=== PATIENT | female | born 1975 | race Caucasian/White ===

== ENCOUNTER 2024-06-04 09:33 | Outpatient (CLI) | payer BC, SELFPAY ==
--- OUTSIDE RECORDS SUMMARY | 2024-06-04 09:36 | XMS_ITS | Patient Health Record ---
Author Organization [facility] Address [address] [place] [address] Support Name Relationship Address Phone Francoise Vilma Guarantor Unknown [phone] Allergies Allergen (clinical drug ingredient) Drug/Non Drug Allergy documented on EMR Reaction Allergy Type Onset Date Status Sulfacet-R rash Drug Allergy Active Reason For Referral No Information Medications Medication SIG (Take, Route, Frequency, Duration) Notes Start Date End Date Status Pyridium 100 MG 2 tablets after meals Orally Three times a day for 5 days 07/30/2019 Active Womens Multivitamin - as directed Orally 1 tablet daily Active MAGNESIUM GLYCINATE 100mg 2 tabl ets in the evening Active Sertraline HCl 50 MG 1 tablet Orally Once a day for 30 day(s) Active oxyBUTYnin Chloride ER 5 MG 1 tablet Orally Once a day for 30 day(s) 07/30/2019 Active THYROID SUPPLEMENT 900 mg daily Active Myrbetriq 25 MG 1 tablet Orally Once a day for 30 day(s) 07/09/2019 Active Potassium Gluconate 595 (99 K) MG as directed Orally 2 tablets daily Activ e HERBAL SUPPLEMENT Keratin 2 capsules daily Active Social History Tobacco Use: Social History Observation Description Date Details (start date - stop date) Never Smoker NA - NA Tobacco Use/Smoking Question Answer Notes Are you a nonsmoker Problems Problem Type SNOMED Code ICD Code Onset Dates Problem Status W/U Status Risk Notes Problem 147360835 Cystocele, midline (N81.11) Active confirmed Problem SI - Stress incontinence (98355509) Stress incontinence (N39.3) Active confirmed Problem 102115590 Urinary incontinence, unspecified type (R32) Active confirmed Problem 683448106 Uterovaginal prolapse, incomplete (N81.2) Active confirmed Problem 234360872 Urinary incontinence without sensory awareness (N39.42) Active confirmed Plan Of Treatment No Information Insurance Providers Payer Name Payer Address Payer Phone Subscriber Number Group Number Insured Name Patient Relationship to Insured Coverage Start Date Coverage End Date Medi Share (INS BILL) [address] [place] [id number] [phone] [id number] Vilma Owusu Self - patient is the insured Medical (General) History Medical History History ICD Code Migraines Anxiety/depression Urinary Incontinence Surgical History Surgery Date(Month/Year) Vaginal mesh surgery 06/2010 Essure permanent control 08/2010 Breast Augmentation 02/2019
--- NOTE | 2024-06-04 09:45 | CRLHL7_ITS ---
For Patients: As a result of the Cures Act, medical imaging exams and procedure reports are released immediately into your electronic medical record. You may view this report before your referring provider. If you have questions, please contact your health care provider. BILATERAL DIAGNOSTIC MAMMOGRAM WITH COMPUTER-AIDED DETECTION AND TOMOSYNTHESIS 06/04/24 CLINICAL HISTORY: Abnormal thermography, LEFT. COMPARISON: No prior mammogram. Baseline exam. TECHNIQUE: Digital BILATERAL mammogram in 4 projections with computer-aided detection. Tomosynthesis was used in this interpretation. Implant displacement. Real-time ultrasound imaging of LEFT breast with imaging documentation. Scanning was performed by both the technologist and the radiologist. BREAST COMPOSITION: Extremely dense. FINDINGS: BILATERAL mammogram images submitted. Implants are intact BILATERALLY. Benign punctate microcalcifications noted BILATERALLY. No architectural distortion or suspicious mass. Targeted LEFT breast ultrasound performed corresponding to an area of subtle increased density on the mammogram. At 11 o`clock 3 cm from the nipple. There is a benign fibroadenoma with hypoechoic internal echotexture and distal acoustic shadowing located at posterior depth measuring 7 x 3 x 5 millimeters. IMPRESSION: No suspicious findings. Normal dense breast tissue BILATERALLY. Intact BILATERAL implants. Incidental benign fibroadenoma LEFT breast 11 o`clock 3 cm from the nipple. No evidence of malignancy. RECOMMENDATIONS: Routine screening mammography. BI-RADS Category 2: Benign A lay language report of this examination will be provided to the patient. Dictated by Brayan Castro MD @ 06/04/2024 11:19:25 AM CACHORRO/dann DW/Dictated by: Brayan Castro MD @ 06/04/2024 11:19:00 AM (Electronically Signed)
--- NOTE | 2024-06-04 10:15 | CRLHL7_ITS ---
For Patients: As a result of the Cures Act, medical imaging exams and procedure reports are released immediately into your electronic medical record. You may view this report before your referring provider. If you have questions, please contact your health care provider. Please see digital diagnostic BILATERAL mammogram performed same day. CRL:sp 06/04/2024 DW/Dictated by: Brayan Castro MD @ 06/04/2024 11:19:00 AM SP/Dictated by: Brayan Castro MD @ 06/04/2024 11:19:00 AM (Electronically Signed)
== END 2024-06-04 09:34 | disposition home or self-care (01) ==
LOC: MAMMO 09:34
PROVIDERS: PCP Physician Assistant Medical; Visit Provider Physician Assistant Medical
DX: R92.8 Other abnormal and inconclusive findings on diagnostic imaging of breast (principal); R92.2 Inconclusive mammogram
CPT/HCPCS: 76642; 77066; 77067; G0279